=== PATIENT | male | born 2000 | race Caucasian/White ===

== ENCOUNTER 2021-09-15 21:11 | Emergency (ER) | payer OTHER, SELFPAY ==
[2021-09-15 21:17] VITALS: BP 152/79; PULSE 60; RESP 16; TEMP 36.6; O2SAT 99
--- NOTE | 2021-09-15 21:32 | ED_ITS ---
HPI - Extremity Injury (Lower) General Chief Complaint: Extremity Injury, Lower Stated Complaint: ROLLED LEFT ANKLE Time Seen by Provider: 09/15/21 21:31 Source: patient Mode of arrival: Ambulatory History of Present Illness HPI Narrative: Otherwise healthy 20-year-old gentleman stumbled approximately 18 hours prior to arrival catching his great toe and and suffering an inversion twisting injury to the ankle with swelling and tenderness to the lateral aspect. He is able to walk on the ankle. He describes no paresthesias, weakness. He has had no recent fevers, cough, vomiting, nausea, abdominal pain, headaches, chest pain or palpitations Review of Systems Review of Systems Narrative: Remainder of complete review of systems is otherwise unremarkable except for that included in the HPI. Exam Initial Vital Signs Initial Vital Signs: Vital Signs Temperature 97.8 F 09/15/21 21:17 Pulse Rate 60 09/15/21 21:17 Respiratory Rate 16 09/15/21 21:17 Blood Pressure 152/79 H 09/15/21 21:17 Pulse Oximetry 99 09/15/21 21:17 General: Alert appropriate in no acute distress Respiratory: Able to speak in full sentences, no obvious respiratory distress Skin: No obvious rashes, warm and dry Neurologic: Grossly intact no obvious asymmetries or abnormalities Psych: appropriate insight and affect, cooperative Exam: Left ankle has some minor swelling along the lateral malleolus without abrasion or hematoma. He is not tender at either malleolus , the navicular bone or the base of the 5th metatarsal. He can bear weight on that ankle. Course Vital Signs Vital signs: Vital Signs - 8 hr 09/15/21 21:17 Temperature 97.8 F Pulse Rate 60 Respiratory Rate 16 Blood Pressure 152/79 H Pulse Oximetry 99 MDM - Extremity Injury (Lower) [facility] Narrative Medical decision making narrative: 20-year-old gentleman with an inversion ankle injury approximately 18 hours prior to arrival, on clinical exam he is not meeting any criteria of the [place] ankle rules to suggest x-rays required. He is placed in a stirrup splint for comfort, discussed rest, elevation, ice and as he has a very active job recommended being off work tomorrow and touching base with his medical provider tomorrow regarding additional options he may be able to perform at work. Questions are answered and he is safe for home discharge Discharge Plan Departure Patient Disposition: Home Clinical Impression: Ankle sprain and strain Instructions: DI for Ankle Sprain Activity Restrictions/Additional Instructions: Thank you for coming in today Fortunately, you are not showing any clinical signs of a broken bone with your ankle injury. You have significantly sprained it. Use the splint for comfort, keeping the ankle elevated, ice to the side of the ankle and using 400 mg of ibuprofen (2 [id number] pills) and 1 Tylenol every 6 hours can be very helpful in controlling pain. If you have worsening symptoms or new findings, please feel free to return to the emergency department Stand Alone Forms: Work Release Note
[2021-09-15] MEDS: IBUPROFEN 400 MG TABLET PO (21:50)
[2021-09-15] MEDS: ACETAMINOPHEN 325 MG TABLET PO (21:50)
== END 2021-09-15 21:56 | disposition home or self-care (01) ==
PROVIDERS: Emergency Provider Emergency Medicine
DX: S93.402A Sprain of unspecified ligament of left ankle, initial encounter (principal); X50.1XXA Overexertion from prolonged static or awkward postures, initial encounter
CPT/HCPCS: 99283